=== PATIENT | male | born 1955 | race Two or more races ===

== ENCOUNTER 2019-06-30 12:57 | Inpatient (IN) | payer OTHER, MEDICAID ==
[~2019-06-30] VITALS: Ht 165.1 cm; Wt 60.3 kg
[~2019-06-30 12:57] MED LIST: BENA10TA9 PO; GLIP10TA9 PO; INSLANTI SC; METF-370 PO
[2019-06-30 15:41] LABS: Albumin 3.4 g/dL (3.4-5.0); Calcium 8.7 mg/dL (8.5-10.1); Potassium 3.7 mmol/L (3.5-5.1)
[2019-06-30 15:44] LABS: BUN/Creatinine Ratio 25.7; Bilirubin, Total 0.4 mg/dL (0.2-1.0); Total Protein 7.2 g/dL (6.4-8.2)
[2019-06-30 16:01] LABS: Basophils # (auto) 0 10 ^3/uL (0-0.2); Basophils % (auto) 0.5 % (0.0-2.0); Eosinophils # (auto) 0 10 ^3/uL (0-0.8); Eosinophils % (auto) 0.5 % (0.0-7.0); Lymphocytes # (auto) 1.7 10 ^3/uL (0.4-5.4); Mean Corpuscular Hemoglobin 31.6 pg (28.0-32.0); Mean Corpuscular Hgb Conc. 34.1 g/dL (32.0-36.0); Mean Corpuscular Volume 92.6 fL (80.0-100.0); Monocytes # (auto) 0.9 10 ^3/uL (0-1.3); Monocytes % (auto) 9.6 % (0.0-12.0); Neutrophils # (auto) 6.6 10 ^3/uL (1.6-8.6); Neutrophils % (auto) 71.4 % (37.0-80.0); Nucleated Red Blood Cells % 0.1 %; Platelet Count (auto) 273 10^3/uL (140-450); Red Cell Distribution Width 14.6 % (11.8-14.3); White Blood Cell 9.2 10^3/uL (4.4-10.8)
[2019-06-30] MEDS ORDERED: SODIUM CHLORIDE 0.9% 1,000 ML IV ONE ×2 (18:00)
[2019-06-30] MEDS ORDERED: PIPERACILLIN-TAZOB 3.375GM 100 ML IV ONE (18:15)
[2019-06-30 18:32] LABS: INR 1.01 (0.9-1.15); Partial Thromboplastin Time 33.2 sec (23.64-32.05)
[2019-06-30] MEDS ORDERED: NITROGLYCERIN 0.4 MG SL TAB SL PRN (18:45)
[2019-06-30] MEDS ORDERED: ACETAMINOPHEN 500 MG TAB PO PRN (18:45)
[2019-06-30] MEDS ORDERED: VANCOMYCIN PER PHARMACY 0 MG IV SCH (18:45)
[2019-06-30] MEDS ORDERED: hydrALAZINE HCL 20 MG/ML VL IV PRN (18:45)
[2019-06-30] MEDS ORDERED: MORPHINE SULF INJ 2 MG/ML SYRINGE 1ML IV PRN ×2 (18:45)
[2019-06-30] MEDS ORDERED: HYDROcodone-ACET 5/325MG TAB PO PRN (18:45)
[2019-06-30] MEDS ORDERED: DEXTROSE (50%) 50ML SYRG IV PRN (18:45)
[2019-06-30] MEDS ORDERED: ONDANSETRON HCL 4 MG/2 ML VIAL IV PRN (18:45)
[2019-06-30 19:50] VITALS: BP 147/90
[2019-06-30] MEDS ORDERED: METF-370 PO (21:25)
[2019-06-30] MEDS ORDERED: GLIP10TA9 PO (21:25)
[2019-06-30] MEDS: VANCOMYCIN 1GM/250ML 250 ML IV SCH (21:38)
[2019-06-30 22:00] VITALS: BP 139/74
[2019-06-30] MEDS: ACCU-CHEK COMFORT CURVE STRIP VI SCH (22:00)
[2019-06-30] MEDS: InsuLIN REG 1unit/0.01ml Soln (100units/ml) SC SCH (22:00)
[2019-06-30] MEDS: metroNIDAZOLE 500MG/100ML 100 ML IV SCH (22:58)
[2019-07-01 05:00] VITALS: BP 122/61
[2019-07-01 06:00] LABS: Basophils # (auto) 0 10 ^3/uL (0-0.2); Basophils % (auto) 0.4 % (0.0-2.0); Eosinophils # (auto) 0.1 10 ^3/uL (0-0.8); Lymphocytes # (auto) 0.9 10 ^3/uL (0.4-5.4); Lymphocytes % (auto) 11.8 % (10.0-50.0); Mean Corpuscular Hemoglobin 31.7 pg (28.0-32.0); Mean Corpuscular Hgb Conc. 34.2 g/dL (32.0-36.0); Mean Corpuscular Volume 92.8 fL (80.0-100.0); Monocytes # (auto) 0.7 10 ^3/uL (0-1.3); Monocytes % (auto) 9.7 % (0.0-12.0); Neutrophils # (auto) 5.7 10 ^3/uL (1.6-8.6); Neutrophils % (auto) 77.1 % (37.0-80.0); Platelet Count (auto) 245 10^3/uL (140-450); Red Blood Cells 3.77 10^6/uL (4.5-5.90); Red Cell Distribution Width 14.3 % (11.8-14.3); White Blood Cell 7.4 10^3/uL (4.4-10.8)
[2019-07-01] MEDS: metroNIDAZOLE 500MG/100ML 100 ML IV SCH ×2 (06:00→14:27)
[2019-07-01 06:13] LABS: Potassium 4.1 mmol/L (3.5-5.1)
[2019-07-01 06:18] LABS: BUN/Creatinine Ratio 23.4; Calcium 8.1 mg/dL (8.5-10.1)
[2019-07-01] MEDS: InsuLIN REG 1unit/0.01ml Soln (100units/ml) SC SCH ×4 (06:43→22:27)
[2019-07-01] MEDS: ACCU-CHEK COMFORT CURVE STRIP VI SCH ×4 (06:43→22:21)
[2019-07-01 09:00] VITALS: BP 138/75
[2019-07-01] MEDS: BENAZEPRIL HCL 10 MG TAB PO SCH (09:52)
[2019-07-01] MEDS: FAMOTIDINE 20 MG TAB PO SCH (09:52)
[2019-07-01] MEDS ORDERED: levoFLOXacin 500MG 100 ML IV SCH (10:00)
[2019-07-01] MEDS ORDERED: INFLUENZA QUAD 2019-2020 0.5ml SYRG IM ONE (10:00)
[2019-07-01] MEDS ORDERED: PNEUMOCOCCAL VACC POLYS 25 MCG/0.5 ML VIAL IM ONE (10:00)
[2019-07-01] MEDS: VANCOMYCIN 1GM/250ML 250 ML IV SCH (13:00)
[2019-07-01 17:00] VITALS: BP 144/82
[2019-07-01 19:16] LABS: Urine Bacteria NONE SEEN /hpf (None Seen); Urine Blood Negative /uL (Negative); Urine Specific Gravity 1.013 (1.001-1.035); Urine WBC 1 /hpf (0 - 3)
[2019-07-01 20:00] VITALS: BP 144/74
[2019-07-01 21:00] VITALS: BP 144/74
[2019-07-01] MEDS ORDERED: CEFEPIME 2 GM in SODIUM CHL 0.9% 50 ML IV SCH (22:00)
[2019-07-01] MEDS: CEFEPIME 2 GM in SODIUM CHL 0.9% 50 ML IV SCH (22:21)
[2019-07-01] MEDS: DAKINS QUARTER STR 0.125% (NaHypochlorite) 473 ML TOPICAL SOL TOP SCH (22:22)
[2019-07-02] MEDS: VANCOMYCIN 1GM/250ML 250 ML IV SCH (03:05)
[2019-07-02 05:00] VITALS: BP 149/77
[2019-07-02] MEDS: ACCU-CHEK COMFORT CURVE STRIP VI SCH ×4 (06:04→22:56)
[2019-07-02] MEDS: InsuLIN REG 1unit/0.01ml Soln (100units/ml) SC SCH ×4 (06:07→22:58)
[2019-07-02 06:39] LABS: Basophils # (auto) 0.1 10 ^3/uL (0-0.2); Basophils % (auto) 1.2 % (0.0-2.0); Eosinophils # (auto) 0.2 10 ^3/uL (0-0.8); Eosinophils % (auto) 2.2 % (0.0-7.0); Hematocrit 37.6 % (41.0-53.0); Hemoglobin 12.9 g/dL (13.5-17.5); Lymphocytes # (auto) 1.8 10 ^3/uL (0.4-5.4); Lymphocytes % (auto) 22.8 % (10.0-50.0); Mean Corpuscular Hemoglobin 31.7 pg (28.0-32.0); Mean Corpuscular Hgb Conc. 34.4 g/dL (32.0-36.0); Mean Corpuscular Volume 92.1 fL (80.0-100.0); Monocytes # (auto) 0.6 10 ^3/uL (0-1.3); Monocytes % (auto) 8.1 % (0.0-12.0); Neutrophils % (auto) 65.7 % (37.0-80.0); Platelet Count (auto) 285 10^3/uL (140-450); Red Blood Cells 4.08 10^6/uL (4.5-5.90); Red Cell Distribution Width 14.8 % (11.8-14.3); White Blood Cell 7.7 10^3/uL (4.4-10.8)
[2019-07-02 07:00] LABS: BUN/Creatinine Ratio 24.2; Calcium 8.6 mg/dL (8.5-10.1); Potassium 3.9 mmol/L (3.5-5.1)
[2019-07-02] MEDS ORDERED: LIDOCAINE 2%HCL (LOCAL ANESTH.) INJ 20ML MDV ONE (07:59)
[2019-07-02] MEDS ORDERED: IODIXANOL 320MG/ML 100ML BTL IV ONE ×2 (08:02→08:51)
[2019-07-02] MEDS ORDERED: IOHEXOL 350 MG/ML 100ML IJ ONE (08:21)
[2019-07-02] MEDS ORDERED: MIDAZOLAM HCL 1MG/1ML-2 ML VIAL ONE (08:22)
[2019-07-02] MEDS ORDERED: fentaNYL CITRATE 100 MCG/2 ML VL ONE (08:22)
[2019-07-02] MEDS ORDERED: SODIUM CHL 0.9% 50 ML ONE (08:23)
[2019-07-02] MEDS ORDERED: ANGIOMAX 250 MG VIAL IV ONE (08:23)
[2019-07-02] MEDS ORDERED: VERAPAMIL 2.5MG/ML INJ 2ML VIAL IV ONE (08:51)
[2019-07-02] MEDS ORDERED: NITROGLYCERIN 5MG/ML 10ML VIAL IV ONE (08:54)
[2019-07-02 09:00] VITALS: BP 151/77
[2019-07-02] MEDS ORDERED: CLOPIDOGREL BISULFATE 75 MG TAB ONE (09:11)
[2019-07-02 10:25] LABS: INR 1.49 (0.9-1.15)
[2019-07-02] MEDS: CEFEPIME 2 GM in SODIUM CHL 0.9% 50 ML IV SCH ×2 (11:44→22:56)
[2019-07-02] MEDS: FAMOTIDINE 20 MG TAB PO SCH (11:45)
[2019-07-02] MEDS: DAKINS QUARTER STR 0.125% (NaHypochlorite) 473 ML TOPICAL SOL TOP SCH ×2 (11:46→22:56)
[2019-07-02] MEDS: BENAZEPRIL HCL 10 MG TAB PO SCH (11:46)
[2019-07-02 14:59] VITALS: BP 152/83
[2019-07-02] MEDS: VANCOMYCIN 750mg/250ml 250 ML IV SCH (16:04)
[2019-07-02 17:00] VITALS: BP 151/86
[2019-07-02] MEDS ORDERED: LIDOCAINE 1% (LOCAL ANESTH.) PF 5ml SDV ID ONE (19:15)
[2019-07-02 20:00] VITALS: BP 144/74
[2019-07-02 22:00] VITALS: BP 138/73
[2019-07-02] MEDS: SODIUM CHLOR 0.9% PF (SALINE LOCK) 10ML VIAL/SYR IV SCH (22:56)
[2019-07-03] MEDS: VANCOMYCIN 750mg/250ml 250 ML IV SCH ×3 (00:01→16:13)
[2019-07-03 05:00] VITALS: BP 114/72
[2019-07-03] MEDS: ACCU-CHEK COMFORT CURVE STRIP VI SCH ×3 (05:43→16:46)
[2019-07-03] MEDS: InsuLIN REG 1unit/0.01ml Soln (100units/ml) SC SCH ×3 (06:10→16:46)
[2019-07-03 07:03] LABS: Basophils # (auto) 0 10 ^3/uL (0-0.2); Basophils % (auto) 0.4 % (0.0-2.0); Eosinophils # (auto) 0.2 10 ^3/uL (0-0.8); Eosinophils % (auto) 2.4 % (0.0-7.0); Hematocrit 36.2 % (41.0-53.0); Hemoglobin 12.4 g/dL (13.5-17.5); Lymphocytes # (auto) 1.6 10 ^3/uL (0.4-5.4); Lymphocytes % (auto) 18.6 % (10.0-50.0); Mean Corpuscular Hemoglobin 31.7 pg (28.0-32.0); Mean Corpuscular Hgb Conc. 34.3 g/dL (32.0-36.0); Mean Corpuscular Volume 92.4 fL (80.0-100.0); Monocytes # (auto) 0.7 10 ^3/uL (0-1.3); Monocytes % (auto) 7.8 % (0.0-12.0); Neutrophils % (auto) 70.8 % (37.0-80.0); Platelet Count (auto) 288 10^3/uL (140-450); Red Blood Cells 3.92 10^6/uL (4.5-5.90); Red Cell Distribution Width 14.2 % (11.8-14.3); White Blood Cell 8.5 10^3/uL (4.4-10.8)
[2019-07-03 07:29] LABS: BUN/Creatinine Ratio 22.4; Magnesium 1.9 mg/dL (1.6-2.6); Potassium 3.7 mmol/L (3.5-5.1)
[2019-07-03] MEDS ORDERED: DAKINS HALF STR 0.25% (NaHypochlorite) 473 ML TOPICAL SOL TOP ONE (07:45)
[2019-07-03 09:00] VITALS: BP 130/70
[2019-07-03] MEDS: SODIUM CHLOR 0.9% PF (SALINE LOCK) 10ML VIAL/SYR IV SCH (10:01)
[2019-07-03] MEDS: FAMOTIDINE 20 MG TAB PO SCH (10:01)
[2019-07-03] MEDS: CEFEPIME 2 GM in SODIUM CHL 0.9% 50 ML IV SCH (10:01)
[2019-07-03] MEDS: DAKINS QUARTER STR 0.125% (NaHypochlorite) 473 ML TOPICAL SOL TOP SCH (10:02)
[2019-07-03] MEDS: BENAZEPRIL HCL 10 MG TAB PO SCH (10:02)
[2019-07-03] MEDS ORDERED: CLOPIDOGREL BISULFATE 75 MG TAB PO SCH (10:15)
[2019-07-03] MEDS ORDERED: ASPirin 81 mg TAB PO SCH (10:15)
[2019-07-03 13:00] VITALS: BP 156/82
[2019-07-03] MEDS ORDERED: CLOP75TA28 PO (14:41)
[2019-07-03] MEDS ORDERED: CEFE2INJ IV (14:41)
[2019-07-03] MEDS ORDERED: ASPI81CH43 PO (14:41)
[2019-07-03] MEDS ORDERED: ATOR20TA50 PO (14:41)
[2019-07-03] MEDS ORDERED: VAN1I IV (14:41)
[2019-07-03 15:08] VITALS: BP 153/81
[2019-07-03] MEDS ORDERED: INFLUENZA QUAD 2019-2020 0.5ml SYRG IM ONE (15:25)
[2019-07-03 17:00] VITALS: BP 141/68
[2019-07-03] MEDS ORDERED: ATORVASTATIN 20 MG TAB PO SCH (22:00)
== END 2019-07-03 18:48 | disposition home health service (06) | DRG 271 ==
LOC: ER 12:57 → OVERFLOW 12:58 → EAST 19:36
PROVIDERS: ADMIT Nurse Practitioner Acute Care; ATTEND Internal Medicine
PROC: 02HV33Z Insertion of Infusion Device into Superior Vena Cava, Percutaneous Approach (ICD-10-PCS; principal; 2019-07-02)
PROC: 04CL3ZZ Extirpation of Matter from Left Femoral Artery, Percutaneous Approach (ICD-10-PCS; 2019-07-02)
PROC: 047L3ZZ Dilation of Left Femoral Artery, Percutaneous Approach (ICD-10-PCS; 2019-07-02)
PROC: 047N3ZZ Dilation of Left Popliteal Artery, Percutaneous Approach (ICD-10-PCS; 2019-07-02)
PROC: B41CYZZ Fluoroscopy of Pelvic Arteries using Other Contrast (ICD-10-PCS; 2019-07-02)
PROC: B41GYZZ Fluoroscopy of Left Lower Extremity Arteries using Other Contrast (ICD-10-PCS; 2019-07-02)
PROC: B41FYZZ Fluoroscopy of Right Lower Extremity Arteries using Other Contrast (ICD-10-PCS; 2019-07-02)
DX: E11.51 Type 2 diabetes mellitus with diabetic peripheral angiopathy without gangrene (principal); L03.116 Cellulitis of left lower limb; M86.172 Other acute osteomyelitis, left ankle and foot; I10 Essential (primary) hypertension; Z79.4 Long term (current) use of insulin; Z83.3 Family history of diabetes mellitus; Z82.49 Family history of ischemic heart disease and other diseases of the circulatory system; E11.69 Type 2 diabetes mellitus with other specified complication; Z89.412 Acquired absence of left great toe; E11.42 Type 2 diabetes mellitus with diabetic polyneuropathy
CPT/HCPCS: 36415; 36569; 37224; 37225; 71045; 73700; 73718; 75716; 75736; 80048; 80053; 80202; 81001; 82962; 83036; 83605; 83735; 84484; 85025; 85610; 85730; 86850; 86900; 86901; 87040; 87081; 87205; 99152; 99153; C1724; G0378; J1815; J1956; J2250; J2543; J3490; Q9967

== ENCOUNTER 2020-01-06 16:33 | Emergency (ER) | payer MEDICARE, MEDICAID ==
[~2020-01-06] VITALS: Ht 165.1 cm; Wt 61.2 kg
[~2020-01-06 16:33] MED LIST changes: +ASPI81CH43 PO; +ATOR20TA50 PO; +CEFE2INJ IV; +CLOP75TA28 PO; -METF-370 PO; +VAN1I IV
[2020-01-06] MEDS ORDERED: SODIUM CHLORIDE 0.9% 500 ML IV ONE (16:50)
[2020-01-06 17:53] LABS: Basophils # (auto) 0.1 10 ^3/uL (0-0.2); Eosinophils # (auto) 0.1 10 ^3/uL (0-0.8); Hematocrit 36.4 % (41.0-53.0); Hemoglobin 12.2 g/dL (13.5-17.5); Mean Corpuscular Hgb Conc. 33.4 g/dL (32.0-36.0); Nucleated Red Blood Cells % 0.1 %
[2020-01-06 17:54] LABS: Eosinophils % (auto) 1.2 % (0.0-7.0); Lymphocytes # (auto) 1.5 10 ^3/uL (0.4-5.4); Lymphocytes % (auto) 14.5 % (10.0-50.0); Mean Corpuscular Hemoglobin 30.9 pg (28.0-32.0); Mean Corpuscular Volume 92.3 fL (80.0-100.0); Monocytes # (auto) 0.5 10 ^3/uL (0-1.3); Monocytes % (auto) 5.1 % (0.0-12.0); Neutrophils # (auto) 8.2 10 ^3/uL (1.6-8.6); Neutrophils % (auto) 78.2 % (37.0-80.0); Platelet Count (auto) 461 10^3/uL (140-450); Red Blood Cells 3.94 10^6/uL (4.5-5.90); White Blood Cell 10.6 10^3/uL (4.4-10.8)
[2020-01-06 18:37] LABS: Albumin 3.3 g/dL (3.4-5.0); Calcium 8.8 mg/dL (8.5-10.1)
[2020-01-06 18:42] LABS: Bilirubin, Total 0.2 mg/dL (0.2-1.0); Total Protein 7.6 g/dL (6.4-8.2)
[2020-01-06] MEDS ORDERED: CLINDAMYCIN 600MG IV 50 ML IV ONE (18:45)
[2020-01-06] MEDS ORDERED: ACETAMINOPHEN 325 MG TAB PO ONE (19:00)
[2020-01-06] MEDS ORDERED: METF-372 PO (21:18)
[2020-01-06] MEDS ORDERED: PIPERACILLIN-TAZOB 3.375GM 100 ML IV ONE (23:15)
[2020-01-06] MEDS ORDERED: VANCOMYCIN 1GM/250ML 250 ML IV ONE (23:15)
[2020-01-07 00:31] VITALS: BP 160/84
== END 2020-01-06 23:47 | disposition short-term general hospital (02) ==
LOC: ER 16:33
DX: M86.8X7 Other osteomyelitis, ankle and foot (principal); E11.9 Type 2 diabetes mellitus without complications; I10 Essential (primary) hypertension; Z79.4 Long term (current) use of insulin; Z79.82 Long term (current) use of aspirin; Z79.899 Other long term (current) drug therapy; Z98.890 Other specified postprocedural states
CPT/HCPCS: 36415; 73700; 80053; 83605; 83880; 85025; 85652; 87040; 87077; 87186; 87205; 96365; 96366; 96367; 99285; J2543; J3370; J3490; J7040; 96361

== ENCOUNTER 2020-07-20 11:24 | Inpatient (IN) | payer OTHER, MEDICAID ==
[~2020-07-20] VITALS: Ht 165.1 cm; Wt 57.3 kg
[~2020-07-20 11:24] MED LIST changes: +METF-372 PO
[2020-07-20] MEDS ORDERED: SODIUM CHLORIDE 0.9% 500 ML IV ONE (12:00)
[2020-07-20 13:04] LABS: Basophils # (auto) 0 10 ^3/uL (0-0.2); Basophils % (auto) 0.2 % (0.0-2.0); Eosinophils # (auto) 0 10 ^3/uL (0-0.8); Eosinophils % (auto) 0.4 % (0.0-7.0); Hematocrit 34.1 % (41.0-53.0); Hemoglobin 11.6 g/dL (13.5-17.5); Lymphocytes % (auto) 10.4 % (10.0-50.0); Mean Corpuscular Hemoglobin 30.2 pg (28.0-32.0); Mean Corpuscular Volume 88.9 fL (80.0-100.0); Monocytes % (auto) 10.4 % (0.0-12.0); Neutrophils # (auto) 7.8 10 ^3/uL (1.6-8.6); Neutrophils % (auto) 78.6 % (37.0-80.0); Platelet Count (auto) 296 10^3/uL (140-450); Red Blood Cells 3.84 10^6/uL (4.5-5.90); Red Cell Distribution Width 13.9 % (11.8-14.3); White Blood Cell 9.9 10^3/uL (4.4-10.8)
[2020-07-20] MEDS ORDERED: CLINDAMYCIN 600MG IV 50 ML IV ONE (13:15)
[2020-07-20] MEDS ORDERED: VANCOMYCIN 1GM/250ML 250 ML IV ONE (13:15)
[2020-07-20 13:27] LABS: Potassium 3.6 mmol/L (3.5-5.1)
[2020-07-20 13:30] LABS: Albumin 2.8 g/dL (3.4-5.0); BUN/Creatinine Ratio 21.4; Bilirubin, Total 0.5 mg/dL (0.2-1.0); Calcium 9.3 mg/dL (8.5-10.1); Total Protein 6.8 g/dL (6.4-8.2)
[2020-07-20] MEDS ORDERED: ACETAMINOPHEN 500 MG TAB PO PRN (15:00)
[2020-07-20] MEDS ORDERED: HYDROcodone-ACET 5/325MG TAB PO PRN (15:00)
[2020-07-20] MEDS ORDERED: MORPHINE SULF INJ 2 MG/ML SYRINGE 1ML IV PRN ×2 (15:00)
[2020-07-20] MEDS ORDERED: VANCOMYCIN PER PHARMACY 0 MG IV SCH (15:00)
[2020-07-20] MEDS ORDERED: DEXTROSE (50%) 50ML SYRG IV PRN (15:00)
[2020-07-20] MEDS ORDERED: NITROGLYCERIN 0.4 MG SL TAB SL PRN (15:00)
[2020-07-20] MEDS: ACCU-CHEK COMFORT CURVE STRIP VI SCH ×2 (18:00→21:22)
[2020-07-20] MEDS: InsuLIN REG 1unit/0.01ml Soln (100units/ml) SC SCH ×2 (18:06→21:26)
[2020-07-20] MEDS: metroNIDAZOLE 500MG/100ML 100 ML IV SCH (21:21)
[2020-07-20] MEDS: FAMOTIDINE 20 MG TAB PO SCH (21:22)
[2020-07-20] MEDS: ATORVASTATIN 20 MG TAB PO SCH (21:22)
[2020-07-20 22:19] VITALS: BP 121/69
[2020-07-20] MEDS ORDERED: INSLANTI SC (22:44)
[2020-07-20] MEDS ORDERED: INSLISPI SC (22:44)
[2020-07-20] MEDS ORDERED: PNEUMOCOCCAL VACC POLYS 25 MCG/0.5 ML VIAL IM ONE (22:45)
[2020-07-20 22:47] VITALS: BP 110/64
[2020-07-21] MEDS: VANCOMYCIN 750mg/250ml 250 ML IV SCH ×2 (04:31→16:47)
[2020-07-21 05:13] VITALS: BP 126/72
[2020-07-21] MEDS: metroNIDAZOLE 500MG/100ML 100 ML IV SCH ×3 (05:45→21:35)
[2020-07-21] MEDS: ACCU-CHEK COMFORT CURVE STRIP VI SCH ×4 (06:58→21:33)
[2020-07-21] MEDS: InsuLIN REG 1unit/0.01ml Soln (100units/ml) SC SCH ×4 (06:58→21:33)
[2020-07-21 07:34] LABS: Basophils # (auto) 0.1 10 ^3/uL (0-0.2); Basophils % (auto) 0.7 % (0.0-2.0); Eosinophils # (auto) 0.2 10 ^3/uL (0-0.8); Eosinophils % (auto) 2.3 % (0.0-7.0); Hematocrit 33.1 % (41.0-53.0); Hemoglobin 11.4 g/dL (13.5-17.5); Lymphocytes % (auto) 14.8 % (10.0-50.0); Mean Corpuscular Hemoglobin 30.1 pg (28.0-32.0); Mean Corpuscular Hgb Conc. 34.3 g/dL (32.0-36.0); Mean Corpuscular Volume 87.8 fL (80.0-100.0); Monocytes # (auto) 0.7 10 ^3/uL (0-1.3); Monocytes % (auto) 9.8 % (0.0-12.0); Neutrophils # (auto) 5.1 10 ^3/uL (1.6-8.6); Neutrophils % (auto) 72.4 % (37.0-80.0); Platelet Count (auto) 324 10^3/uL (140-450); Red Blood Cells 3.77 10^6/uL (4.5-5.90); Red Cell Distribution Width 13.8 % (11.8-14.3); White Blood Cell 7.1 10^3/uL (4.4-10.8)
[2020-07-21 07:49] LABS: INR 1.03 (0.9-1.15); Partial Thromboplastin Time 31.1 sec (23.0-31.2)
[2020-07-21 08:10] LABS: Potassium 3.8 mmol/L (3.5-5.1)
[2020-07-21 08:14] LABS: BUN/Creatinine Ratio 16.1; Calcium 8.7 mg/dL (8.5-10.1)
[2020-07-21] MEDS ORDERED: PNEUMOCOCCAL VACC POLYS 25 MCG/0.5 ML VIAL IM ONE (09:00)
[2020-07-21 09:12] VITALS: BP 139/66
[2020-07-21] MEDS: FAMOTIDINE 20 MG TAB PO SCH ×2 (10:39→21:36)
[2020-07-21 12:10] VITALS: BP 137/78
[2020-07-21 16:12] VITALS: BP 135/84
[2020-07-21] MEDS: metFORMIN HYDROCHLORIDE 500 MG TAB PO SCH (16:47)
[2020-07-21] MEDS: INSULIN LANTUS (GLARGINE) 1 /0.01ml (100units/ml) SC SCH (21:33)
[2020-07-21] MEDS: ATORVASTATIN 20 MG TAB PO SCH (21:36)
[2020-07-21 22:00] VITALS: BP 114/66
[2020-07-21 22:16] LABS: Urine Bacteria FEW /hpf (None Seen); Urine Blood Negative /uL (Negative); Urine Mucus FEW (None Seen); Urine Specific Gravity 1.014 (1.001-1.035); Urine WBC 3 /hpf (0 - 3)
[2020-07-22 05:00] VITALS: BP 127/76
[2020-07-22] MEDS: metroNIDAZOLE 500MG/100ML 100 ML IV SCH ×3 (05:39→22:37)
[2020-07-22] MEDS: INSULIN LANTUS (GLARGINE) 1 /0.01ml (100units/ml) SC SCH ×2 (06:06→22:45)
[2020-07-22] MEDS: ACCU-CHEK COMFORT CURVE STRIP VI SCH ×4 (06:06→22:38)
[2020-07-22] MEDS: InsuLIN REG 1unit/0.01ml Soln (100units/ml) SC SCH ×4 (06:25→22:45)
[2020-07-22 07:43] LABS: Basophils # (auto) 0 10 ^3/uL (0-0.2); Basophils % (auto) 0.4 % (0.0-2.0); Eosinophils # (auto) 0.3 10 ^3/uL (0-0.8); Eosinophils % (auto) 3.3 % (0.0-7.0); Hematocrit 35.3 % (41.0-53.0); Hemoglobin 11.9 g/dL (13.5-17.5); Lymphocytes # (auto) 1.5 10 ^3/uL (0.4-5.4); Lymphocytes % (auto) 18.4 % (10.0-50.0); Mean Corpuscular Hemoglobin 29.7 pg (28.0-32.0); Mean Corpuscular Hgb Conc. 33.6 g/dL (32.0-36.0); Mean Corpuscular Volume 88.4 fL (80.0-100.0); Monocytes # (auto) 0.7 10 ^3/uL (0-1.3); Monocytes % (auto) 8.2 % (0.0-12.0); Neutrophils # (auto) 5.6 10 ^3/uL (1.6-8.6); Neutrophils % (auto) 69.7 % (37.0-80.0); Platelet Count (auto) 358 10^3/uL (140-450); Red Cell Distribution Width 14.1 % (11.8-14.3); White Blood Cell 8.1 10^3/uL (4.4-10.8)
[2020-07-22 08:02] LABS: Potassium 3.8 mmol/L (3.5-5.1)
[2020-07-22 08:15] VITALS: BP 146/84
[2020-07-22 08:54] VITALS: BP 114/84
[2020-07-22] MEDS: VANCOMYCIN 750mg/250ml 250 ML IV SCH ×2 (09:00→18:47)
[2020-07-22] MEDS: metFORMIN HYDROCHLORIDE 500 MG TAB PO SCH ×2 (09:00→17:19)
[2020-07-22] MEDS: FAMOTIDINE 20 MG TAB PO SCH ×2 (09:40→22:38)
[2020-07-22 09:54] LABS: Calcium 8.5 mg/dL (8.5-10.1); Magnesium 1.9 mg/dL (1.6-2.6)
[2020-07-22] MEDS: DAKINS QUARTER STR 0.125% (NaHypochlorite) 473 ML TOPICAL SOL TOP SCH ×2 (10:00→22:54)
[2020-07-22 12:30] VITALS: BP 138/79
[2020-07-22] MEDS ORDERED: LIDOCAINE 1% (LOCAL ANESTH.) PF 5ml SDV ID ONE (12:45)
[2020-07-22] MEDS ORDERED: LIDOCAINE 1% HCL (LOCAL ANESTH.) INJ 20ML MDV ONE (13:43)
[2020-07-22] MEDS ORDERED: BUPIVACAINE 0.5% MPF INJ 30ML SDV IJ ONE (14:03)
[2020-07-22] MEDS ORDERED: ceFAZolin 1GM/50ML 50 ML IV ONE (14:04)
[2020-07-22] MEDS ORDERED: MIDAZOLAM HCL 1MG/1ML-2 ML VIAL ONE (14:16)
[2020-07-22] MEDS ORDERED: LIDOCAINE 2% (LOCAL ANESTH.) PF 5ml SDV ONE (14:16)
[2020-07-22] MEDS ORDERED: fentaNYL CITRATE 100 MCG/2 ML VL ONE (14:17)
[2020-07-22] MEDS ORDERED: PROPOFOL 10 MG/ML 20 ML IV ONE (14:17)
[2020-07-22] MEDS ORDERED: LABETALOL HCL 5 MG/ML 4ML SYRINGE IV ONE (15:19)
[2020-07-22] MEDS ORDERED: ONDANSETRON HCL 4 MG/2 ML VIAL IV PRN (15:30)
[2020-07-22] MEDS ORDERED: HYDROmorphone HCL 2 MG/ML VL IV PRN (15:30)
[2020-07-22 16:55] VITALS: BP 127/72
[2020-07-22 21:52] VITALS: BP 126/67
[2020-07-22] MEDS: SODIUM CHLOR 0.9% PF (SALINE LOCK) 10ML VIAL/SYR IV SCH (22:37)
[2020-07-22] MEDS: ATORVASTATIN 20 MG TAB PO SCH (22:38)
[2020-07-23 04:07] VITALS: BP 111/51
[2020-07-23] MEDS: metroNIDAZOLE 500MG/100ML 100 ML IV SCH (05:47)
[2020-07-23 05:57] LABS: Basophils # (auto) 0 10 ^3/uL (0-0.2); Basophils % (auto) 0.6 % (0.0-2.0); Eosinophils # (auto) 0.1 10 ^3/uL (0-0.8); Eosinophils % (auto) 1.9 % (0.0-7.0); Hematocrit 33.3 % (41.0-53.0); Hemoglobin 11.2 g/dL (13.5-17.5); Lymphocytes # (auto) 1.3 10 ^3/uL (0.4-5.4); Mean Corpuscular Hemoglobin 29.8 pg (28.0-32.0); Mean Corpuscular Hgb Conc. 33.7 g/dL (32.0-36.0); Mean Corpuscular Volume 88.4 fL (80.0-100.0); Monocytes # (auto) 0.6 10 ^3/uL (0-1.3); Monocytes % (auto) 8.3 % (0.0-12.0); Neutrophils # (auto) 5.6 10 ^3/uL (1.6-8.6); Neutrophils % (auto) 72.2 % (37.0-80.0); Platelet Count (auto) 350 10^3/uL (140-450); Red Blood Cells 3.76 10^6/uL (4.5-5.90); White Blood Cell 7.8 10^3/uL (4.4-10.8)
[2020-07-23 06:34] LABS: Calcium 8.1 mg/dL (8.5-10.1); Magnesium 1.8 mg/dL (1.6-2.6); Potassium 3.7 mmol/L (3.5-5.1)
[2020-07-23 06:36] LABS: BUN/Creatinine Ratio 24.1
[2020-07-23] MEDS: ACCU-CHEK COMFORT CURVE STRIP VI SCH ×4 (06:47→22:17)
[2020-07-23] MEDS: INSULIN LANTUS (GLARGINE) 1 /0.01ml (100units/ml) SC SCH ×2 (06:52→22:26)
[2020-07-23] MEDS: InsuLIN REG 1unit/0.01ml Soln (100units/ml) SC SCH ×4 (06:53→22:25)
[2020-07-23] MEDS: metFORMIN HYDROCHLORIDE 500 MG TAB PO SCH ×2 (08:17→17:25)
[2020-07-23] MEDS: VANCOMYCIN 750mg/250ml 250 ML IV SCH ×2 (08:17→18:26)
[2020-07-23] MEDS: SODIUM CHLOR 0.9% PF (SALINE LOCK) 10ML VIAL/SYR IV SCH ×2 (08:17→22:17)
[2020-07-23] MEDS: FAMOTIDINE 20 MG TAB PO SCH ×2 (08:18→22:17)
[2020-07-23 08:43] VITALS: BP 116/67
[2020-07-23 13:00] VITALS: BP 145/77
[2020-07-23 16:37] VITALS: BP 125/73
[2020-07-23] MEDS: DAKINS QUARTER STR 0.125% (NaHypochlorite) 473 ML TOPICAL SOL TOP SCH (18:27)
[2020-07-23 20:00] VITALS: BP 125/69
[2020-07-23] MEDS: ATORVASTATIN 20 MG TAB PO SCH (22:17)
[2020-07-24 03:23] LABS: Basophils # (auto) 0 10 ^3/uL (0-0.2); Basophils % (auto) 0.7 % (0.0-2.0); Eosinophils # (auto) 0.3 10 ^3/uL (0-0.8); Eosinophils % (auto) 4.8 % (0.0-7.0); Hemoglobin 12.3 g/dL (13.5-17.5); Lymphocytes # (auto) 1.5 10 ^3/uL (0.4-5.4); Lymphocytes % (auto) 21.9 % (10.0-50.0); Mean Corpuscular Hemoglobin 29.8 pg (28.0-32.0); Mean Corpuscular Hgb Conc. 33.2 g/dL (32.0-36.0); Mean Corpuscular Volume 89.8 fL (80.0-100.0); Monocytes # (auto) 0.7 10 ^3/uL (0-1.3); Monocytes % (auto) 9.5 % (0.0-12.0); Neutrophils # (auto) 4.4 10 ^3/uL (1.6-8.6); Neutrophils % (auto) 63.1 % (37.0-80.0); Nucleated Red Blood Cells % 0.1 %; Platelet Count (auto) 418 10^3/uL (140-450); Red Blood Cells 4.12 10^6/uL (4.5-5.90); Red Cell Distribution Width 13.9 % (11.8-14.3)
[2020-07-24] MEDS: DAKINS QUARTER STR 0.125% (NaHypochlorite) 473 ML TOPICAL SOL TOP SCH ×3 (03:48→22:19)
[2020-07-24 03:56] LABS: BUN/Creatinine Ratio 22.8; Calcium 8.6 mg/dL (8.5-10.1); Potassium 4.1 mmol/L (3.5-5.1)
[2020-07-24] MEDS: VANCOMYCIN 750mg/250ml 250 ML IV SCH ×3 (04:11→23:59)
[2020-07-24 05:00] VITALS: BP 117/65
[2020-07-24] MEDS: ACCU-CHEK COMFORT CURVE STRIP VI SCH ×4 (05:56→22:19)
[2020-07-24] MEDS: INSULIN LANTUS (GLARGINE) 1 /0.01ml (100units/ml) SC SCH ×2 (06:00→22:20)
[2020-07-24] MEDS: InsuLIN REG 1unit/0.01ml Soln (100units/ml) SC SCH ×4 (06:01→22:00)
[2020-07-24] MEDS: metFORMIN HYDROCHLORIDE 500 MG TAB PO SCH ×2 (08:06→17:55)
[2020-07-24 09:00] VITALS: BP 131/73
[2020-07-24] MEDS: FAMOTIDINE 20 MG TAB PO SCH ×2 (09:58→22:19)
[2020-07-24] MEDS: SODIUM CHLOR 0.9% PF (SALINE LOCK) 10ML VIAL/SYR IV SCH ×2 (09:59→22:18)
[2020-07-24 13:00] VITALS: BP 139/74
[2020-07-24 16:31] VITALS: BP 148/77
[2020-07-24 22:00] VITALS: BP 156/80
[2020-07-24] MEDS: ATORVASTATIN 20 MG TAB PO SCH (22:19)
[2020-07-25 04:51] VITALS: BP 125/72
[2020-07-25] MEDS: INSULIN LANTUS (GLARGINE) 1 /0.01ml (100units/ml) SC SCH ×2 (06:32→22:00)
[2020-07-25] MEDS: ACCU-CHEK COMFORT CURVE STRIP VI SCH ×4 (06:32→22:53)
[2020-07-25] MEDS: InsuLIN REG 1unit/0.01ml Soln (100units/ml) SC SCH ×4 (06:33→22:00)
[2020-07-25 08:00] VITALS: BP 121/71
[2020-07-25] MEDS: metFORMIN HYDROCHLORIDE 500 MG TAB PO SCH (08:50)
[2020-07-25] MEDS: VANCOMYCIN 750mg/250ml 250 ML IV SCH (08:51)
[2020-07-25] MEDS: FAMOTIDINE 20 MG TAB PO SCH ×2 (08:51→22:52)
[2020-07-25] MEDS: SODIUM CHLOR 0.9% PF (SALINE LOCK) 10ML VIAL/SYR IV SCH ×2 (08:51→22:53)
[2020-07-25] MEDS ORDERED: levoFLOXacin 750MG 150 ML IV ONE (11:00)
[2020-07-25 12:00] VITALS: BP 143/78
[2020-07-25] MEDS: DAKINS QUARTER STR 0.125% (NaHypochlorite) 473 ML TOPICAL SOL TOP SCH ×2 (13:56→22:53)
[2020-07-25 16:00] VITALS: BP 130/67
[2020-07-25 22:00] VITALS: BP 152/79
[2020-07-25] MEDS: ATORVASTATIN 20 MG TAB PO SCH (22:52)
[2020-07-26 05:00] VITALS: BP 140/73
[2020-07-26] MEDS: ACCU-CHEK COMFORT CURVE STRIP VI SCH ×4 (06:32→22:22)
[2020-07-26] MEDS: InsuLIN REG 1unit/0.01ml Soln (100units/ml) SC SCH ×4 (06:32→22:00)
[2020-07-26] MEDS: INSULIN LANTUS (GLARGINE) 1 /0.01ml (100units/ml) SC SCH ×2 (06:35→22:00)
[2020-07-26] MEDS: metFORMIN HYDROCHLORIDE 500 MG TAB PO SCH ×3 (07:24→18:24)
[2020-07-26 08:00] VITALS: BP 128/73
[2020-07-26 13:00] VITALS: BP 159/84
[2020-07-26] MEDS: levoFLOXacin 750MG 150 ML IV SCH (14:29)
[2020-07-26] MEDS: SODIUM CHLOR 0.9% PF (SALINE LOCK) 10ML VIAL/SYR IV SCH ×2 (14:30→22:21)
[2020-07-26] MEDS: DAKINS QUARTER STR 0.125% (NaHypochlorite) 473 ML TOPICAL SOL TOP SCH ×2 (14:30→23:55)
[2020-07-26] MEDS: FAMOTIDINE 20 MG TAB PO SCH ×2 (14:30→22:22)
[2020-07-26 17:00] VITALS: BP 146/83
[2020-07-26 22:00] VITALS: BP 133/79
[2020-07-26] MEDS: ATORVASTATIN 20 MG TAB PO SCH (22:21)
[2020-07-27 05:28] VITALS: BP 144/73
[2020-07-27] MEDS: ACCU-CHEK COMFORT CURVE STRIP VI SCH ×2 (06:42→11:30)
[2020-07-27] MEDS: INSULIN LANTUS (GLARGINE) 1 /0.01ml (100units/ml) SC SCH (06:43)
[2020-07-27] MEDS: InsuLIN REG 1unit/0.01ml Soln (100units/ml) SC SCH ×2 (06:43→11:30)
[2020-07-27 09:00] VITALS: BP 125/71
[2020-07-27] MEDS: FAMOTIDINE 20 MG TAB PO SCH (09:42)
[2020-07-27] MEDS: SODIUM CHLOR 0.9% PF (SALINE LOCK) 10ML VIAL/SYR IV SCH (09:42)
[2020-07-27] MEDS: metFORMIN HYDROCHLORIDE 500 MG TAB PO SCH (09:42)
[2020-07-27] MEDS: levoFLOXacin 750MG 150 ML IV SCH (09:42)
[2020-07-27 10:49] VITALS: BP 125/71
[2020-07-27 12:48] VITALS: BP 153/81
== END 2020-07-27 13:30 | disposition home or self-care (01) | DRG 617 ==
LOC: ER 11:24 → TELE 11:25 → TELE-CENTR 20:30
PROVIDERS: ADMIT Nurse Practitioner Acute Care; ATTEND Internal Medicine Geriatric Medicine
PROC: 3E0234Z Introduction of Serum, Toxoid and Vaccine into Muscle, Percutaneous Approach (ICD-10-PCS; 2020-07-21)
PROC: 02HV33Z Insertion of Infusion Device into Superior Vena Cava, Percutaneous Approach (ICD-10-PCS; 2020-07-22)
PROC: 0Y6N0Z9 Detachment at Left Foot, Partial 1st Ray, Open Approach (ICD-10-PCS; principal; 2020-07-22 14:12)
DX: E11.69 Type 2 diabetes mellitus with other specified complication (principal); M86.8X7 Other osteomyelitis, ankle and foot; I69.351 Hemiplegia and hemiparesis following cerebral infarction affecting right dominant side; R64 Cachexia; E44.0 Moderate protein-calorie malnutrition; D64.9 Anemia, unspecified; Z23 Encounter for immunization; E11.51 Type 2 diabetes mellitus with diabetic peripheral angiopathy without gangrene; E11.65 Type 2 diabetes mellitus with hyperglycemia; Z68.21 Body mass index [BMI] 21.0-21.9, adult; I10 Essential (primary) hypertension; Z79.02 Long term (current) use of antithrombotics/antiplatelets; Z79.4 Long term (current) use of insulin; Z79.82 Long term (current) use of aspirin; Z82.49 Family history of ischemic heart disease and other diseases of the circulatory system; Z83.3 Family history of diabetes mellitus; Z91.19 Patient's noncompliance with other medical treatment and regimen; Z79.899 Other long term (current) drug therapy
CPT/HCPCS: 36415; 36569; 71045; 73700; 80048; 80053; 80061; 80202; 81001; 82962; 83036; 83735; 85025; 85610; 85652; 85730; 86850; 86900; 86901; 87070; 87075; 87077; 87186; 87205; 87426; 96361; 96365; 96368; 96372; 97110; 97163; 97530; G0378; J0690; J1815; J1956; J2001; J2250; J2704; J3490

== ENCOUNTER 2021-05-22 13:41 | Inpatient (IN) | payer OTHER, MEDICAID ==
[~2021-05-22] VITALS: Ht 170.2 cm; Wt 57.0 kg
[~2021-05-22 13:41] MED LIST changes: +BENA10TA15 PO; -BENA10TA9 PO; -CEFE2INJ IV; -CLOP75TA28 PO; +INSLISPI SC; -VAN1I IV
[2021-05-22 14:41] LABS: Basophils # (auto) 0 10 ^3/uL (0-0.2); Basophils % (auto) 0.5 % (0.0-2.0); Eosinophils # (auto) 0 10 ^3/uL (0-0.8); Eosinophils % (auto) 0.2 % (0.0-7.0); Hemoglobin 12.4 g/dL (13.5-17.5); Lymphocytes # (auto) 0.6 10 ^3/uL (0.4-5.4); Lymphocytes % (auto) 8.8 % (10.0-50.0); Mean Corpuscular Hemoglobin 28.3 pg (28.0-32.0); Mean Corpuscular Hgb Conc. 32.6 g/dL (32.0-36.0); Monocytes # (auto) 0.5 10 ^3/uL (0-1.3); Monocytes % (auto) 6.9 % (0.0-12.0); Neutrophils # (auto) 5.8 10 ^3/uL (1.6-8.6); Neutrophils % (auto) 83.6 % (37.0-80.0); Red Blood Cells 4.37 10^6/uL (4.5-5.90); Red Cell Distribution Width 15.3 % (11.8-14.3)
[2021-05-22 14:48] LABS: Albumin 3.6 g/dL (3.4-5.0); Calcium 8.8 mg/dL (8.5-10.1); Potassium 4.1 mmol/L (3.5-5.1)
[2021-05-22 14:50] LABS: BUN/Creatinine Ratio 21.9
[2021-05-22 14:52] LABS: Bilirubin, Total 0.4 mg/dL (0.2-1.0); Total Protein 6.9 g/dL (6.4-8.2)
[2021-05-22] MEDS ORDERED: PIPERACILLIN-TAZOB 3.375GM 100 ML IV ONE (16:15)
[2021-05-22 17:16] LABS: Basophils # (auto) 0 10 ^3/uL (0-0.2); Basophils % (auto) 0.7 % (0.0-2.0); Eosinophils # (auto) 0 10 ^3/uL (0-0.8); Eosinophils % (auto) 0.3 % (0.0-7.0); Hematocrit 37.2 % (41.0-53.0); Hemoglobin 12.2 g/dL (13.5-17.5); Lymphocytes # (auto) 1.1 10 ^3/uL (0.4-5.4); Lymphocytes % (auto) 17.1 % (10.0-50.0); Mean Corpuscular Hemoglobin 28.5 pg (28.0-32.0); Mean Corpuscular Hgb Conc. 32.8 g/dL (32.0-36.0); Monocytes # (auto) 0.6 10 ^3/uL (0-1.3); Neutrophils # (auto) 4.7 10 ^3/uL (1.6-8.6); Neutrophils % (auto) 72.9 % (37.0-80.0); Nucleated Red Blood Cells % 0.1 %; Red Blood Cells 4.27 10^6/uL (4.5-5.90); Red Cell Distribution Width 15.3 % (11.8-14.3); White Blood Cell 6.4 10^3/uL (4.4-10.8)
[2021-05-22 17:38] LABS: Alanine Aminotransferase 23 U/L (16-61); Albumin 3.3 g/dL (3.4-5.0); Anion Gap 8 (5-15); Aspartate Aminotransferase 15 U/L (15-37); BUN/Creatinine Ratio 25.8; Blood Urea Nitrogen 16 mg/dL (7-18); Calcium 8.4 mg/dL (8.5-10.1); Carbon Dioxide 23 mmol/L (21-32); Chloride 104 mmol/L (98-107); GFR African American 168 mL/min; GFR Non-African American 139 mL/min; Glucose 231 mg/dL (74-106); Potassium 3.9 mmol/L (3.5-5.1); Sodium 135 mmol/L (136-145)
[2021-05-22 17:41] LABS: Alkaline Phosphatase 46 U/L (45-117); Bilirubin, Total 0.3 mg/dL (0.2-1.0); Total Protein 6.6 g/dL (6.4-8.2)
[2021-05-22] MEDS ORDERED: NITROGLYCERIN 0.4 MG SL TAB SL PRN (18:00)
[2021-05-22] MEDS ORDERED: MORPHINE SULFATE INJECTION 2 MG/ML SYRG IV PRN ×2 (18:00→20:45)
[2021-05-22] MEDS ORDERED: VANCOMYCIN 1GM/250ML 250 ML IV ONE (18:30)
[2021-05-22] MEDS ORDERED: BENAZEPRIL HCL 10 MG TAB PO ONE (20:45)
[2021-05-22] MEDS: SODIUM CHLORIDE 0.9% 1,000 ML IV SCH ×2 (20:45→22:17)
[2021-05-22] MEDS ORDERED: DOCUSATE SOD 100 MG CAP PO PRN (20:45)
[2021-05-22] MEDS ORDERED: DEXTROSE (50%) 50ML SYRG IV PRN (20:45)
[2021-05-22] MEDS ORDERED: ONDANSETRON HCL 4 MG/2 ML VIAL IV PRN (20:45)
[2021-05-22] MEDS ORDERED: FAMOTIDINE (10MG/ML) 2ML VL IV ONE (20:45)
[2021-05-22] MEDS ORDERED: hydrALAZINE HCL 20 MG/ML VL IV PRN (20:45)
[2021-05-22] MEDS ORDERED: NIFEdipine ER 30 MG TAB PO ONE (20:45)
[2021-05-22] MEDS ORDERED: LORazepam 0.5 MG TAB PO PRN (20:45)
[2021-05-22] MEDS ORDERED: VANCOMYCIN PER PHARMACY 0 MG IV SCH (20:45)
[2021-05-22] MEDS ORDERED: PENTOXIFYLLINE 400 MG ER TAB PO ONE (20:45)
[2021-05-22] MEDS: ACCU-CHEK COMFORT CURVE STRIP VI SCH (22:00)
[2021-05-22] MEDS: InsuLIN REG 1unit/0.01ml Soln (100units/ml) SC SCH (22:00)
[2021-05-22 23:34] VITALS: BP 146/78
[2021-05-23] MEDS: PIPERACILLIN-TAZO 4.5GM 100 ML IV SCH ×3 (01:00→07:03)
[2021-05-23] MEDS: ATORVASTATIN 20 MG TAB PO SCH ×2 (01:39→22:08)
[2021-05-23] MEDS: CILOSTAZOL 100 MG TAB PO SCH ×3 (01:40→22:08)
[2021-05-23 05:00] VITALS: BP 116/67
[2021-05-23 06:01] LABS: Basophils # (auto) 0 10 ^3/uL (0-0.2); Eosinophils # (auto) 0.1 10 ^3/uL (0-0.8); Eosinophils % (auto) 2.7 % (0.0-7.0); Hematocrit 36.7 % (41.0-53.0); Hemoglobin 12.4 g/dL (13.5-17.5); Lymphocytes # (auto) 1.1 10 ^3/uL (0.4-5.4); Lymphocytes % (auto) 23.4 % (10.0-50.0); Mean Corpuscular Hemoglobin 29.1 pg (28.0-32.0); Mean Corpuscular Hgb Conc. 33.8 g/dL (32.0-36.0); Mean Corpuscular Volume 86.1 fL (80.0-100.0); Monocytes # (auto) 0.5 10 ^3/uL (0-1.3); Monocytes % (auto) 11.8 % (0.0-12.0); Neutrophils # (auto) 2.8 10 ^3/uL (1.6-8.6); Neutrophils % (auto) 61.1 % (37.0-80.0); Nucleated Red Blood Cells % 0.1 %; Red Blood Cells 4.27 10^6/uL (4.5-5.90); Red Cell Distribution Width 15.2 % (11.8-14.3); White Blood Cell 4.5 10^3/uL (4.4-10.8)
[2021-05-23 06:18] LABS: Potassium 3.9 mmol/L (3.5-5.1)
[2021-05-23 06:29] LABS: Albumin 3.1 g/dL (3.4-5.0); Bilirubin, Total 0.2 mg/dL (0.2-1.0); CRP High Sensitivity 2.11 mg/dL (< 0.3); Calcium 8.5 mg/dL (8.5-10.1); Phosphorus 3.7 mg/dL (2.5-4.90); Total Protein 6.3 g/dL (6.4-8.2)
[2021-05-23] MEDS: SODIUM CHLORIDE 0.9% 1,000 ML IV SCH ×3 (06:57→07:00)
[2021-05-23 06:58] LABS: INR 0.99 (0.9-1.15); Partial Thromboplastin Time 27.5 sec (23.6-33.0)
[2021-05-23] MEDS: PENTOXIFYLLINE 400 MG ER TAB PO SCH ×3 (06:59→22:09)
[2021-05-23] MEDS: InsuLIN REG 1unit/0.01ml Soln (100units/ml) SC SCH ×4 (07:00→22:00)
[2021-05-23 09:00] VITALS: BP 140/67
[2021-05-23] MEDS: NIFEdipine ER 30 MG TAB PO SCH (10:00)
[2021-05-23] MEDS: VANCOMYCIN 1GM/250ML 250 ML IV SCH ×2 (10:32→22:08)
[2021-05-23] MEDS: ASPirin 81 mg TAB PO SCH (10:33)
[2021-05-23] MEDS: FAMOTIDINE (10MG/ML) 2ML VL IV SCH (10:33)
[2021-05-23] MEDS: ENOXAPARIN SOD 40 MG/0.4 ML SYRINGE SC SCH (10:34)
[2021-05-23] MEDS: BENAZEPRIL HCL 10 MG TAB PO SCH (10:47)
[2021-05-23] MEDS: ACCU-CHEK COMFORT CURVE STRIP VI SCH ×4 (11:30→22:09)
[2021-05-23 13:00] VITALS: BP 123/63
[2021-05-23 17:03] VITALS: BP_SYST 150; BP_SYST 92; BP_DIAS 66; BP_DIAS 72
[2021-05-23 22:00] VITALS: BP 103/56
[2021-05-24] MEDS: PIPERACILLIN-TAZO 4.5GM 100 ML IV SCH ×3 (01:10→17:00)
[2021-05-24 05:00] VITALS: BP 104/59
[2021-05-24] MEDS: ACCU-CHEK COMFORT CURVE STRIP VI SCH ×4 (06:46→21:33)
[2021-05-24] MEDS: InsuLIN REG 1unit/0.01ml Soln (100units/ml) SC SCH ×4 (06:46→21:37)
[2021-05-24] MEDS: PENTOXIFYLLINE 400 MG ER TAB PO SCH ×3 (06:46→21:31)
[2021-05-24 09:00] VITALS: BP 121/62
[2021-05-24] MEDS: NIFEdipine ER 30 MG TAB PO SCH (10:00)
[2021-05-24] MEDS: ASPirin 81 mg TAB PO SCH (10:00)
[2021-05-24] MEDS: ENOXAPARIN SOD 40 MG/0.4 ML SYRINGE SC SCH (10:00)
[2021-05-24] MEDS: CILOSTAZOL 100 MG TAB PO SCH ×2 (10:00→21:31)
[2021-05-24] MEDS: BENAZEPRIL HCL 10 MG TAB PO SCH (10:00)
[2021-05-24] MEDS: FAMOTIDINE (10MG/ML) 2ML VL IV SCH (10:00)
[2021-05-24 13:00] VITALS: BP 122/60
[2021-05-24 17:00] VITALS: BP 131/73
[2021-05-24 20:20] VITALS: BP 117/64
[2021-05-24] MEDS: VANCOMYCIN 1GM/250ML 250 ML IV SCH (20:46)
[2021-05-24] MEDS: ATORVASTATIN 20 MG TAB PO SCH (21:31)
[2021-05-25] MEDS: PIPERACILLIN-TAZO 4.5GM 100 ML IV SCH ×2 (00:40→11:00)
[2021-05-25 04:36] VITALS: BP_SYST 129; BP_SYST 143; BP_DIAS 66; BP_DIAS 68
[2021-05-25] MEDS: PENTOXIFYLLINE 400 MG ER TAB PO SCH ×3 (06:00→21:13)
[2021-05-25] MEDS: VANCOMYCIN 1GM/250ML 250 ML IV SCH ×2 (06:07→16:31)
[2021-05-25] MEDS: ACCU-CHEK COMFORT CURVE STRIP VI SCH ×4 (06:09→21:42)
[2021-05-25] MEDS: InsuLIN REG 1unit/0.01ml Soln (100units/ml) SC SCH ×4 (06:10→21:42)
[2021-05-25 09:48] VITALS: BP 136/77
[2021-05-25] MEDS: ENOXAPARIN SOD 40 MG/0.4 ML SYRINGE SC SCH ×2 (10:00→10:19)
[2021-05-25] MEDS: FAMOTIDINE (10MG/ML) 2ML VL IV SCH (10:15)
[2021-05-25] MEDS: ASPirin 81 mg TAB PO SCH ×2 (10:16→15:04)
[2021-05-25] MEDS: CILOSTAZOL 100 MG TAB PO SCH ×2 (10:17→21:12)
[2021-05-25] MEDS: BENAZEPRIL HCL 10 MG TAB PO SCH (10:17)
[2021-05-25] MEDS: NIFEdipine ER 30 MG TAB PO SCH (10:18)
[2021-05-25 13:00] VITALS: BP 137/82
[2021-05-25] MEDS ORDERED: HEPARIN IN NS 1000Units/500mL 0 ML ONE (13:56)
[2021-05-25] MEDS ORDERED: IODIXANOL 320MG/ML 100ML BTL IV ONE (13:56)
[2021-05-25] MEDS ORDERED: LIDOCAINE 2%HCL (LOCAL ANESTH.) INJ 20ML MDV ONE (13:56)
[2021-05-25 17:52] VITALS: BP 125/71
[2021-05-25] MEDS: ATORVASTATIN 20 MG TAB PO SCH (21:12)
[2021-05-25 22:00] VITALS: BP 100/59
[2021-05-26] MEDS: PIPERACILLIN-TAZO 4.5GM 100 ML IV SCH ×4 (01:00→18:02)
[2021-05-26 01:48] LABS: BUN/Creatinine Ratio 26.2; Calcium 8.6 mg/dL (8.5-10.1); Potassium 3.9 mmol/L (3.5-5.1)
[2021-05-26] MEDS: VANCOMYCIN 1GM/250ML 250 ML IV SCH ×3 (02:17→21:33)
[2021-05-26 05:00] VITALS: BP 125/74
[2021-05-26] MEDS: ACCU-CHEK COMFORT CURVE STRIP VI SCH ×4 (06:36→21:33)
[2021-05-26] MEDS: PENTOXIFYLLINE 400 MG ER TAB PO SCH ×3 (06:36→21:33)
[2021-05-26] MEDS: InsuLIN REG 1unit/0.01ml Soln (100units/ml) SC SCH ×4 (06:39→21:35)
[2021-05-26 07:30] LABS: Basophils # (auto) 0 10 ^3/uL (0-0.2); Basophils % (auto) 0.8 % (0.0-2.0); Eosinophils # (auto) 0.1 10 ^3/uL (0-0.8); Eosinophils % (auto) 3.7 % (0.0-7.0); Hematocrit 36.2 % (41.0-53.0); Hemoglobin 12.1 g/dL (13.5-17.5); Lymphocytes # (auto) 1.3 10 ^3/uL (0.4-5.4); Mean Corpuscular Hemoglobin 28.8 pg (28.0-32.0); Mean Corpuscular Hgb Conc. 33.3 g/dL (32.0-36.0); Mean Corpuscular Volume 86.3 fL (80.0-100.0); Monocytes # (auto) 0.4 10 ^3/uL (0-1.3); Monocytes % (auto) 9.3 % (0.0-12.0); Neutrophils # (auto) 2.1 10 ^3/uL (1.6-8.6); Neutrophils % (auto) 53.2 % (37.0-80.0); Red Cell Distribution Width 15.2 % (11.8-14.3)
[2021-05-26 07:38] LABS: INR 0.99 (0.9-1.15); Partial Thromboplastin Time 27.1 sec (23.6-33.0)
[2021-05-26 07:46] LABS: Calcium 8.6 mg/dL (8.5-10.1); Potassium 3.7 mmol/L (3.5-5.1)
[2021-05-26 07:49] LABS: BUN/Creatinine Ratio 26.5
[2021-05-26 09:00] VITALS: BP 123/74
[2021-05-26] MEDS ORDERED: ANGIOMAX 250 MG VIAL IV ONE (11:00)
[2021-05-26] MEDS ORDERED: LIDOCAINE 1% (LOCAL ANESTH.) PF 5ml SDV ID ONE (11:00)
[2021-05-26] MEDS ORDERED: MIDAZOLAM HCL 2MG/2ML 2ml VIAL (1mg/ml) ONE (11:01)
[2021-05-26] MEDS ORDERED: SODIUM CHL 0.9% 50 ML ONE (11:01)
[2021-05-26] MEDS ORDERED: fentaNYL CITRATE 100 MCG/2 ML VL ONE (11:01)
[2021-05-26] MEDS ORDERED: LIDOCAINE 2%HCL (LOCAL ANESTH.) INJ 20ML MDV ONE (11:36)
[2021-05-26] MEDS ORDERED: IODIXANOL 320MG/ML 100ML BTL IV ONE (11:36)
[2021-05-26] MEDS ORDERED: diphenhdrAMINE HCL 50 MG/1 ML VL ONE (12:39)
[2021-05-26] MEDS: CILOSTAZOL 100 MG TAB PO SCH ×2 (15:16→21:33)
[2021-05-26] MEDS: ASPirin 81 mg TAB PO SCH (15:16)
[2021-05-26] MEDS: FAMOTIDINE (10MG/ML) 2ML VL IV SCH (15:16)
[2021-05-26] MEDS: ENOXAPARIN SOD 40 MG/0.4 ML SYRINGE SC SCH (15:17)
[2021-05-26] MEDS: BENAZEPRIL HCL 10 MG TAB PO SCH (15:18)
[2021-05-26] MEDS: NIFEdipine ER 30 MG TAB PO SCH (15:18)
[2021-05-26 17:00] VITALS: BP 150/75
[2021-05-26] MEDS: SODIUM CHLOR 0.9% PF (SALINE LOCK) 10ML VIAL/SYR IV SCH (21:33)
[2021-05-26] MEDS: ATORVASTATIN 20 MG TAB PO SCH (21:33)
[2021-05-26 22:00] VITALS: BP 110/62
[2021-05-27] MEDS: PIPERACILLIN-TAZO 4.5GM 100 ML IV SCH ×3 (01:00→18:22)
[2021-05-27 05:00] VITALS: BP 91/51
[2021-05-27] MEDS: PENTOXIFYLLINE 400 MG ER TAB PO SCH ×3 (05:31→21:17)
[2021-05-27] MEDS: ACCU-CHEK COMFORT CURVE STRIP VI SCH ×4 (06:34→21:19)
[2021-05-27] MEDS: InsuLIN REG 1unit/0.01ml Soln (100units/ml) SC SCH ×4 (06:35→21:19)
[2021-05-27 07:11] LABS: BUN/Creatinine Ratio 25.3; Calcium 8.5 mg/dL (8.5-10.1)
[2021-05-27] MEDS: VANCOMYCIN 1GM/250ML 250 ML IV SCH ×2 (08:23→18:22)
[2021-05-27 09:00] VITALS: BP 101/56
[2021-05-27] MEDS: BENAZEPRIL HCL 10 MG TAB PO SCH (10:00)
[2021-05-27] MEDS: SODIUM CHLOR 0.9% PF (SALINE LOCK) 10ML VIAL/SYR IV SCH ×2 (10:00→21:17)
[2021-05-27] MEDS: NIFEdipine ER 30 MG TAB PO SCH (10:00)
[2021-05-27] MEDS: CILOSTAZOL 100 MG TAB PO SCH ×2 (10:45→21:17)
[2021-05-27] MEDS: FAMOTIDINE (10MG/ML) 2ML VL IV SCH (10:45)
[2021-05-27] MEDS: ASPirin 81 mg TAB PO SCH (10:45)
[2021-05-27] MEDS: ENOXAPARIN SOD 40 MG/0.4 ML SYRINGE SC SCH (10:46)
[2021-05-27 12:59] VITALS: BP 101/60
[2021-05-27 17:07] VITALS: BP 118/62
[2021-05-27] MEDS: ATORVASTATIN 20 MG TAB PO SCH (21:17)
[2021-05-27 22:00] VITALS: BP 113/59
[2021-05-28] MEDS: PIPERACILLIN-TAZO 4.5GM 100 ML IV SCH ×3 (00:20→17:07)
[2021-05-28 05:00] VITALS: BP 113/64
[2021-05-28] MEDS: VANCOMYCIN 1GM/250ML 250 ML IV SCH ×2 (05:30→14:54)
[2021-05-28] MEDS: PENTOXIFYLLINE 400 MG ER TAB PO SCH ×3 (06:00→21:22)
[2021-05-28] MEDS: InsuLIN REG 1unit/0.01ml Soln (100units/ml) SC SCH ×4 (06:45→21:23)
[2021-05-28] MEDS: ACCU-CHEK COMFORT CURVE STRIP VI SCH ×4 (07:00→21:23)
[2021-05-28 09:00] VITALS: BP 117/79
[2021-05-28] MEDS ORDERED: ROPIVACAINE 0.5% (5MG/ML) 20ML AMPULE IJ ONE (09:26)
[2021-05-28] MEDS ORDERED: ceFAZolin 1GM VL ONE (09:26)
[2021-05-28] MEDS: ENOXAPARIN SOD 40 MG/0.4 ML SYRINGE SC SCH (10:00)
[2021-05-28] MEDS: FAMOTIDINE (10MG/ML) 2ML VL IV SCH (10:20)
[2021-05-28] MEDS: SODIUM CHLOR 0.9% PF (SALINE LOCK) 10ML VIAL/SYR IV SCH ×2 (10:20→21:22)
[2021-05-28] MEDS ORDERED: SODIUM CHLORIDE LOCK 10 ML ONE (10:27)
[2021-05-28] MEDS ORDERED: PROPOFOL 10 MG/ML 20 ML IV ONE (10:27)
[2021-05-28] MEDS ORDERED: MIDAZOLAM HCL 2MG/2ML 2ml VIAL (1mg/ml) ONE (10:27)
[2021-05-28] MEDS: BENAZEPRIL HCL 10 MG TAB PO SCH (10:45)
[2021-05-28] MEDS: CILOSTAZOL 100 MG TAB PO SCH ×2 (10:45→21:22)
[2021-05-28] MEDS: ASPirin 81 mg TAB PO SCH (10:45)
[2021-05-28] MEDS: NIFEdipine ER 30 MG TAB PO SCH (10:45)
[2021-05-28] MEDS ORDERED: ceFAZolin 1GM/50ML 100 ML IV ONE (10:50)
[2021-05-28] MEDS ORDERED: MORPHINE SULFATE 4 MG/ML SYR/VIAL IV PRN (11:00)
[2021-05-28] MEDS ORDERED: METOCLOPRAMIDE HCL 5MG/ml INJ 2ml VIAL IV PRN (11:00)
[2021-05-28] MEDS ORDERED: HYDROmorphone HCL 2 MG/ML VL IV PRN (11:00)
[2021-05-28] MEDS ORDERED: ACCU-CHEK COMFORT CURVE STRIP VI ONE (11:00)
[2021-05-28 13:00] VITALS: BP 147/82
[2021-05-28 17:00] VITALS: BP 156/81
[2021-05-28] MEDS: ATORVASTATIN 20 MG TAB PO SCH (21:22)
[2021-05-28 22:00] VITALS: BP 129/73
[2021-05-29] MEDS: VANCOMYCIN 1GM/250ML 250 ML IV SCH ×3 (00:04→19:45)
[2021-05-29] MEDS: PIPERACILLIN-TAZO 4.5GM 100 ML IV SCH ×2 (02:00→08:49)
[2021-05-29 05:00] VITALS: BP 138/78
[2021-05-29 06:02] LABS: Potassium 4.2 mmol/L (3.5-5.1)
[2021-05-29 06:19] LABS: BUN/Creatinine Ratio 19.4; Calcium 8.8 mg/dL (8.5-10.1)
[2021-05-29] MEDS: PENTOXIFYLLINE 400 MG ER TAB PO SCH (06:21)
[2021-05-29] MEDS: ACCU-CHEK COMFORT CURVE STRIP VI SCH ×4 (06:36→21:20)
[2021-05-29] MEDS: InsuLIN REG 1unit/0.01ml Soln (100units/ml) SC SCH ×4 (06:41→21:16)
[2021-05-29 09:00] VITALS: BP 129/70
[2021-05-29] MEDS ORDERED: DOXY-286 PO (09:29)
[2021-05-29] MEDS: SODIUM CHLOR 0.9% PF (SALINE LOCK) 10ML VIAL/SYR IV SCH ×2 (10:00→21:15)
[2021-05-29] MEDS: FAMOTIDINE (10MG/ML) 2ML VL IV SCH (10:46)
[2021-05-29] MEDS: ASPirin 81 mg TAB PO SCH (10:46)
[2021-05-29] MEDS: CILOSTAZOL 100 MG TAB PO SCH (10:47)
[2021-05-29] MEDS: ENOXAPARIN SOD 40 MG/0.4 ML SYRINGE SC SCH (10:47)
[2021-05-29] MEDS: NIFEdipine ER 30 MG TAB PO SCH (10:48)
[2021-05-29] MEDS: BENAZEPRIL HCL 10 MG TAB PO SCH (10:54)
[2021-05-29] MEDS: ERTAPENEM SOD INJ 1 GM in SODIUM CHL 0.9% 50 ML IV SCH (12:23)
[2021-05-29 13:00] VITALS: BP 121/67
[2021-05-29 16:31] VITALS: BP 108/66
[2021-05-29] MEDS: ATORVASTATIN 20 MG TAB PO SCH (21:20)
[2021-05-29 22:00] VITALS: BP 112/69
[2021-05-30 04:31] VITALS: BP 116/70
[2021-05-30] MEDS: InsuLIN REG 1unit/0.01ml Soln (100units/ml) SC SCH ×3 (06:10→17:40)
[2021-05-30] MEDS: VANCOMYCIN 1GM/250ML 250 ML IV SCH ×2 (06:14→16:30)
[2021-05-30] MEDS: ACCU-CHEK COMFORT CURVE STRIP VI SCH ×3 (07:00→17:00)
[2021-05-30 09:20] VITALS: BP 109/69
[2021-05-30] MEDS: SODIUM CHLOR 0.9% PF (SALINE LOCK) 10ML VIAL/SYR IV SCH (10:00)
[2021-05-30] MEDS ORDERED: ASPirin 81 mg TAB PO SCH (10:00)
[2021-05-30] MEDS: NIFEdipine ER 30 MG TAB PO SCH (10:00)
[2021-05-30] MEDS: ERTAPENEM SOD INJ 1 GM in SODIUM CHL 0.9% 50 ML IV SCH (10:20)
[2021-05-30] MEDS: FAMOTIDINE (10MG/ML) 2ML VL IV SCH (10:26)
[2021-05-30] MEDS: ENOXAPARIN SOD 40 MG/0.4 ML SYRINGE SC SCH (10:27)
[2021-05-30] MEDS: BENAZEPRIL HCL 10 MG TAB PO SCH (10:28)
[2021-05-30 13:00] VITALS: BP 131/73
== END 2021-05-30 20:00 | disposition home or self-care (01) | DRG 253 ==
LOC: ER 13:41 → OVERFLOW 17:50 → CENTRAL 21:41
PROVIDERS: ADMIT Hospitalist; ATTEND Internal Medicine Geriatric Medicine
PROC: 047Q3ZZ Dilation of Left Anterior Tibial Artery, Percutaneous Approach (ICD-10-PCS; 2021-05-26)
PROC: 04FQ3ZZ Fragmentation of Left Anterior Tibial Artery, Percutaneous Approach (ICD-10-PCS; 2021-05-26)
PROC: B41G1ZZ Fluoroscopy of Left Lower Extremity Arteries using Low Osmolar Contrast (ICD-10-PCS; 2021-05-26)
PROC: B41F1ZZ Fluoroscopy of Right Lower Extremity Arteries using Low Osmolar Contrast (ICD-10-PCS; 2021-05-26)
PROC: B41CYZZ Fluoroscopy of Pelvic Arteries using Other Contrast (ICD-10-PCS; 2021-05-26)
PROC: 05HC33Z Insertion of Infusion Device into Left Basilic Vein, Percutaneous Approach (ICD-10-PCS; 2021-05-26)
PROC: B54NZZA Ultrasonography of Left Upper Extremity Veins, Guidance (ICD-10-PCS; 2021-05-26)
PROC: 0Y6U0Z3 Detachment at Left 3rd Toe, Low, Open Approach (ICD-10-PCS; principal; 2021-05-28 11:15)
DX: E11.51 Type 2 diabetes mellitus with diabetic peripheral angiopathy without gangrene (principal); M86.8X7 Other osteomyelitis, ankle and foot; E44.0 Moderate protein-calorie malnutrition; L03.116 Cellulitis of left lower limb; Z68.1 Body mass index [BMI] 19.9 or less, adult; E11.21 Type 2 diabetes mellitus with diabetic nephropathy; E11.69 Type 2 diabetes mellitus with other specified complication; I25.10 Atherosclerotic heart disease of native coronary artery without angina pectoris; I10 Essential (primary) hypertension; Z20.822 Contact with and (suspected) exposure to COVID-19; R54 Age-related physical debility; E78.5 Hyperlipidemia, unspecified; Z79.4 Long term (current) use of insulin; Z82.49 Family history of ischemic heart disease and other diseases of the circulatory system; Z83.3 Family history of diabetes mellitus; Z87.891 Personal history of nicotine dependence; Z89.439 Acquired absence of unspecified foot
CPT/HCPCS: 36415; 36569; 37228; 71045; 73620; 75710; 80048; 80053; 80061; 80202; 82010; 82565; 82728; 82962; 83036; 83735; 83880; 84100; 84443; 84484; 85025; 85379; 85610; 85652; 85730; 86141; 87040; 87070; 87075; 87081; 87205; 87426; 93926; 96365; 96367; 96375; 99152; 99153; G0378; J0690; J1335; J1815; J2250; J2543; J2704; J3490; Q9967